=== PATIENT | female | born 1985 | race Caucasian/White ===

== ENCOUNTER → 2016-12-03 | Outpatient (CLI) | payer OTHER ==
--- NOTE | 2016-12-04 11:33 | DI ---
US OB LESS THAN 14 WEEKS,12/03/2016 3:00 PM: Clinical History: Established gestational age Previous Exam: October 24, 2012 Findings: Multiple grayscale and color Doppler sonographic images are obtained through the pelvis demonstrating a single live intrauterine gestation with a crown-rump length of 44 mm corresponding with an estimat ed gestational age by ultrasound of 10 weeks 6 days (June 25, 2017). The left ovary was normal measuring 3.8 x 3.3 x 3.3 cm containing a simple cyst measuring 2.2 cm most consistent with a corpus luteum cyst. The cervix is long and closed measuring 4.3 cm in length. Detected Doppler heart tones measured 169 beats per minute. Visualized portions of the urinary bladder are unremarkable. Impression: Single live intrauterine gestation with estimated gestational age of 10 weeks 6 days.
== END ==
LOC: US 14:56
PROVIDERS: ATTEND Student in an Organized Health Care Education/Training Program
DX: Z36 Encounter for antenatal screening of mother (principal); Z3A.10 10 weeks gestation of pregnancy
CPT/HCPCS: 76801; 76817

== ENCOUNTER → 2016-12-03 | Outpatient (CLI) | payer OTHER ==
[2016-12-03 12:48] LABS: BASOPHILS # (AUTO) 0.03 10*3/UL; BASOPHILS % (AUTO) 0.3 % (0-1); EOSINOPHILS # (AUTO) 0.06 10*3/UL; EOSINOPHILS % (AUTO) 0.7 % (0-8); HEMATOCRIT 39.2 % (37.0-47.0); LYMPHOCYTES # (AUTO) 1.75 10*3/uL; MEAN CORPUSCULAR HEMOGLOBIN 28.7 PG (27-31); MEAN CORPUSCULAR HGB CONC 33.2 g/dL (33-37); MEAN CORPUSCULAR VOLUME 86.5 FL (81-99); MEAN PLATELET VOLUME 10.2 FL (7.4-12.2); MONOCYTES # (AUTO) 0.35 10*3/UL (0.3-0.8); MONOCYTES % (AUTO) 4.1 % (5-15); NEUTROPHILS # (AUTO) 6.43 10*3/UL; NEUTROPHILS % (AUTO) 74.4 % (50-80); RED BLOOD COUNT 4.53 10^6/uL (4.20-5.40)
[2016-12-03 13:08] LABS: PLATELET MORPHOLOGY COMMENT NORMAL MORPHOLOGY (NORM); RBC MORPHOLOGY COMMENT NORMAL MORPHOLOGY (NORM); WBC MORPHOLOGY COMMENT NORMAL MORPHOLOGY (NORM)
[2016-12-03 14:55] LABS: HIV ANTIBODY NEGATIVE (N); HIV-1 P24 ANTIGEN NEGATIVE (N)
[2016-12-04 14:15] LABS: HEP B SURFACE AG Negative (Negative)
== END ==
LOC: MOB LAB 11:55
PROVIDERS: ATTEND Student in an Organized Health Care Education/Training Program
DX: Z34.81 Encounter for supervision of other normal pregnancy, first trimester (principal); Z3A.11 11 weeks gestation of pregnancy
CPT/HCPCS: 36415; 80081; 86900; 86901; 87088

== ENCOUNTER → 2016-12-31 | Outpatient (CLI) | payer OTHER | LOC: MOB LAB 11:29 | PROVIDERS: ATTEND Student in an Organized Health Care Education/Training Program | DX: Z36 Encounter for antenatal screening of mother (principal); Z3A.14 14 weeks gestation of pregnancy | CPT/HCPCS: 87491; 87591 ==

== ENCOUNTER → 2017-02-13 | Outpatient (CLI) | payer OTHER ==
--- NOTE | 2017-02-13 14:17 | DI ---
US OB GTE 14 WEEKS,02/13/2017 11:12 AM: Clinical History: Encounter for anatomy. Previous Exam: December 03, 2016 Findings: Multiple grayscale and color Doppler sonographic images are obtained through the pelvis demonstrating a single live intrauterine gestation in vertex presentation. Amniotic fluid level is subjectively normal. The cervix is long and closed measuring 4.3 cm in length. There is normal spontaneous motion of the limbs and diaphragms. Detected Doppler heart tones measured 146 beats per minute. The placenta is anterior and grade 0 without visible defects. There is no gross anatomic abnormality. Estimated gestational age was determined by a composite of biparietal diameter, head circumference, a bdominal circumference and femur length yielding an estimated gestational age by ultrasound of 21 wee ks 5 days. Estimated weight is 445 g (92nd percentile). Impression: Single live intrauterine gestation with size equal to dates. No gross abnormality.
== END ==
LOC: US 11:03
PROVIDERS: ATTEND Student in an Organized Health Care Education/Training Program
DX: Z36 Encounter for antenatal screening of mother (principal); Z3A.20 20 weeks gestation of pregnancy
CPT/HCPCS: 76805

== ENCOUNTER → 2017-04-03 | Outpatient (CLI) | payer OTHER ==
[2017-04-03 11:04] LABS: MEAN CORPUSCULAR HEMOGLOBIN 30.9 PG (27-31); MEAN CORPUSCULAR HGB CONC 33.3 g/dL (33-37); MEAN CORPUSCULAR VOLUME 92.8 FL (81-99); RED BLOOD COUNT 3.88 10^6/uL (4.20-5.40)
== END ==
LOC: LAB 09:21
PROVIDERS: ATTEND Family Medicine
DX: Z36 Encounter for antenatal screening of mother (principal); Z3A.28 28 weeks gestation of pregnancy
CPT/HCPCS: 36415; 82950; 84443; 85027

== ENCOUNTER 2017-06-23 08:05 | Inpatient (IN) ==
[2017-06-23] MEDS ORDERED: NORMAL SALINE 10 ML SYRINGE FLUSH IVP PRN ×3 (08:23→14:45)
[2017-06-23] MEDS ORDERED: Lidocaine 1% 10 MG/ML - 20 ML VIAL SUBCUT PRN (09:00)
[2017-06-23] MEDS ORDERED: TERBUTALINE SULFATE 1 MG/1 ML SDV SUBCUT PRN (09:00)
[2017-06-23] MEDS ORDERED: BUTORPHANOL TARTRATE 2 MG/1 ML VIAL IVP PRN (09:00)
[2017-06-23] MEDS ORDERED: Naloxone Inj 0.01 MG in Normal Saline Flush 1 ML IVP PRN (09:00)
[2017-06-23] MEDS ORDERED: Carboprost Inj 250 MCG/ML AMP IM PRN (09:00)
[2017-06-23] MEDS ORDERED: Phenylephrine Inj 50 MCG in Normal Saline Flush 0.5 ML IVP PRN (09:00)
[2017-06-23] MEDS ORDERED: Lactated Ringers-OB Dept 1,000 ML PRIMARY IV SCH (09:00)
[2017-06-23] MEDS ORDERED: diphenhydrAMINE 50 MG/1 ML VIAL IVP PRN ×2 (09:00→14:45)
[2017-06-23] MEDS ORDERED: Metoclopramide Inj 10 MG/2 ML VIAL IV PRN (09:00)
[2017-06-23] MEDS ORDERED: LIDOCAINE W/ SODIUM BICARB 0.5 ML SYR SUBD PRN (09:00)
[2017-06-23] MEDS ORDERED: METHYLERGONOVINE MALEATE 0.2 MG/1 ML VIAL IM PRN (09:00)
[2017-06-23] MEDS ORDERED: Oxytocin 20 Units + LR 20 UNIT/1,000 ML BAG IV SCH ×2 (09:00→14:45)
[2017-06-23] MEDS ORDERED: CITRIC ACID/SODIUM CITRATE 30 ML CUP PO PRN (09:00)
[2017-06-23] MEDS ORDERED: CefOXitin Inj 2 GM in Sodium Chloride 0.9% 100 ML IV PRN (09:00)
[2017-06-23] MEDS ORDERED: ONDANSETRON 4 MG/2 ML VIAL IVP PRN ×2 (09:00→14:45)
[2017-06-23] MEDS ORDERED: Nalbuphine Inj 20 MG/ML Ampule IVP PRN ×2 (09:00→14:45)
[2017-06-23] MEDS ORDERED: fentaNYL Inj 100 MCG/2 ML VIAL IV PRN (09:00)
[2017-06-23] MEDS ORDERED: OXYTOCIN 10 UNIT/1 ML IM PRN (09:00)
[2017-06-23] MEDS ORDERED: ePHEDrine Inj 5 MG in Normal Saline Flush 1 ML IVP PRN (09:00)
[2017-06-23] MEDS ORDERED: MISOPROSTOL 200 MCG TABLET RECTAL PRN (09:00)
[2017-06-23] MEDS ORDERED: CALCIUM CARBONATE 500 MG (TUMS) CHEWABLE TABLET PO PRN ×2 (09:00→14:45)
[2017-06-23] MEDS ORDERED: Famotidine Inj 20 MG in Normal Saline Flush 10 ML IVP PRN ×4 (09:00)
[2017-06-23] MEDS ORDERED: NALOXONE 0.4 MG/1 ML VIAL IVP PRN (09:00)
[2017-06-23 09:53] LABS: Hematocrit [HCT] 37.2 % (37.0-47.0); Hemoglobin [HGB] 12.2 g/dL (12.0-16.0); MEAN CORPUSCULAR HEMOGLOBIN 30.5 PG (27-31); MEAN CORPUSCULAR HGB CONC 32.8 g/dL (33-37)
--- NOTE | 2017-06-23 11:34 | OB.PROGRES ---
Date and Time of Service: 06/23/17 @ 1030 Interval History: Pt is a 32 yo at 39 5/7 weeks gestation by early u/s who presented to labor and delivery this morning complaining of painful, regular uterine contractions. She had a little bit of bloody show after she arrived at the hospital. Her contractions started around 2230 last noc and got progressively worse through the noc. She denies any gushes or leaking of fluid. Baby has been active. Pt reports that her has been uncomplicated. Growth on the 20 week u/s was at the 92nd percentile, but she has had normal fundal heights in the past month. GBS negative. O+. 1 hour glucola was 109. Objective - Cervical Exam Cervical Exam: 6-7/100/0/vtx/soft [place]: every 2-3 minutes, palpating hard. Soft resting tone in between contractions. Heart Rate: 130s, occasional variables, nothing recurrent. Moderate variability in between variables. Heart Rate Interpretation Category: Category II - Labs CBC and BMP: 06/23/17 09:00 - Vital Signs Last Taken Vital Signs: Vital Signs - Last Taken Temperature 97.6 F 06/23/17 08:22 Pulse Rate 80 06/23/17 08:22 Respiratory Rate 14 06/23/17 08:22 Blood Pressure 122/79 06/23/17 08:22 Pulse Ox 100 06/23/17 08:22 Assessment and Plan - Patient Problems (1) Active labor at term Current Visit: Yes Status: Acute - Assessment / Plan Additional Assessment/Plan Details: -GBS negative. -pt requesting to go as natural as possible. -last baby was a low vacuum extraction with a 14 inch head. That baby weighed 7# 14 oz. This baby doesn't appear to be that big, but will be mindful of the events of her last delivery. -expectant management.
--- NOTE | 2017-06-23 14:18 | OB.DEL.SUM ---
Delivery Note Delivery Summary: Pt is a 32 yo G2 now P2, at 39 5/7 weeks by first trimester u/s, who presented to labor and delivery this morning with regular, painful contractions. She is GBS negative. She was 5-6/70/-1 on admission. She declined anything for pain. She labored on her own through the morning and had spontaneous rupture of membranes with meconium-stained fluid when she was 9 cm. She had a persistent anterior lip of cervix which would not reduce with pushing it over the baby's head. The pt finally agreed to go to knee-chest position, and the baby changed position and was then . She was turned back over to semi-Maier's position and pushed several times to the delivery of a viable female , over an intact perineum. There was no shoulder dystocia. The umbilical cord was draped over her head. She cried briefly but then didn't have great respiratory effort, so the cord was clamped after about 20 seconds and cut by the father of the baby. Baby was handed off to the waiting nurse for resuscitation. Cord blood and cord gases were obtained for analysis. Time of delivery 1321. The placenta delivered spontaneously and intact with a 3 vessel cord at 1326. There was moderate to heavy bleeding after the placenta was delivered, so pitocin was initiated at 999 cc/hr. Her fundus was firm on uterine exam. Due to the position of the cervix after delivery, I was able to visualize all of the anterior lip, which looked a little mascerated but was not actively bleeding. The remainder of the vagina and perineum were examined and no lacerations were noted except for some superficial skid-landaverde on either side of the urethra. These were not actively bleeding and were thus not sutured. EBL 350 cc. Apgars were 6 at 1 minute and 9 at 5 minutes. Baby's weight is pending at this time. Both mom and baby tolerated delivery well and are in stable condition at this time. - Patient Problems (1) Active labor at term Current Visit: Yes Status: Acute
[2017-06-23] MEDS ORDERED: Ondansetron ODT Tab 4 MG TAB PO PRN (14:45)
[2017-06-23] MEDS ORDERED: BENZOCAINE/MENTHOL SPRAY 56 GM BOTTLE TOPICAL PRN (14:45)
[2017-06-23] MEDS ORDERED: GLYCERIN/WITCH HAZEL 1 BOX TOPICAL PRN (14:45)
[2017-06-23] MEDS ORDERED: DIPH,PERTUSS,TET(ADACEL) VAC/PF 0.5 ML (Tdap) IM ONE (14:45)
[2017-06-23] MEDS ORDERED: LANOLIN HPA 40 GM TUBE TOPICAL PRN (14:45)
[2017-06-23] MEDS ORDERED: IBUPROFEN 800 MG TABLET PO PRN (14:45)
[2017-06-23] MEDS ORDERED: diphenhydrAMINE 25 MG CAPSULE PO PRN (14:45)
[2017-06-23] MEDS ORDERED: HYDROcodone-APAP 5 MG -325 MG TABLET PO PRN (14:45)
[2017-06-23] MEDS ORDERED: LIDOCAINE HCL 2 % 10 ML JELLY URO-JECT TOPICAL PRN (14:45)
[2017-06-23] MEDS ORDERED: ACETAMINOPHEN 325 MG TABLET PO PRN (14:45)
[2017-06-23] MEDS: DOCUSATE 100 MG CAPSULE PO SCH (21:16)
[2017-06-23 21:19] VITALS: RESP 18
[2017-06-24 05:09] VITALS: O2SAT 100
[2017-06-24 07:53] LABS: Hemoglobin [HGB] 10.3 g/dL (12.0-16.0); MEAN CORPUSCULAR HEMOGLOBIN 30.3 PG (27-31); MEAN CORPUSCULAR HGB CONC 33.2 g/dL (33-37); MEAN CORPUSCULAR VOLUME 91.2 FL (81-99); MEAN PLATELET VOLUME 10.5 FL (7.4-12.2); RED BLOOD COUNT 3.4 10^6/uL (4.20-5.40)
[2017-06-24] MEDS ORDERED: Prenatal Multivitamin Tab 1 TAB TAB PO SCH (09:00)
[2017-06-24] MEDS: DOCUSATE 100 MG CAPSULE PO SCH (11:59)
[2017-06-24 12:03] VITALS: BP 107/73; TEMP 97.5
--- NOTE | 2017-06-27 13:49 | OB.PROGRES ---
Subjective Post Op Day: 1 Pain Management: PO [place] Catheter: No Flatus: Yes Diet: Regular Feeding Method: Exculsively Ambulating: Yes Objective General: sitting up in bed, in NAD CardioVascular: RRR with no m/r/g. Respiratory: CTAB, with no crackles or wheezing. Bowel Sounds: Present Extremities: Negative Live's - Bilaterally Assesstment / Plan (1) Active labor at term Status: Acute Assessment / Plan: -routine cares. -rh positive. -rubella immune. -breast feeding well. -pt requesting d/c home. F/u at 6 weeks for routine visit.
== END 2017-06-24 14:55 | disposition home or self-care (01) | DRG 775 ==
LOC: OBOP 08:05 → OBIP 09:00
PROVIDERS: ADMIT Family Medicine; ATTEND Family Medicine